=== PATIENT | male | born 2000 | race Caucasian/White ===

== ENCOUNTER 2023-12-04 03:22 | Emergency (ER) | payer SELFPAY ==
[~2023-12-04] VITALS: Ht 190.5 cm; Wt 99.8 kg
[2023-12-04 03:27] VITALS: BP 106/55; PULSE 88; RESP 20; TEMP 97.2; O2SAT 100
[2023-12-04] MEDS ORDERED: HALOPERIDOL IM 5 MG/ML VIAL IM ONE (03:40)
[2023-12-04] MEDS ORDERED: NACL 0.9% 1,000 ML IV ONE (03:40)
[2023-12-04 05:34] LABS: CALCIUM 8.4 mg/dL (8.5-10.1); CARBON DIOXIDE 24.8 mmol/L (21-32); CREATININE 0.8 mg/dL (0.6-1.3); POTASSIUM 5.8 mmol/L (3.5-5.1)
[2023-12-04 06:00] VITALS: O2SAT 98
[2023-12-04 07:56] VITALS: O2SAT 98
[2023-12-04 08:00] VITALS: BP 107/46; PULSE 67; RESP 16; TEMP 97.2; O2SAT 98
[2023-12-05] MEDS ORDERED: LORA-476 PO (11:29)
== END 2023-12-04 09:33 | disposition home or self-care (01) ==
LOC: MED 03:22
DX: F10.129 Alcohol abuse with intoxication, unspecified (principal); R45.1 Restlessness and agitation; Z79.899 Other long term (current) drug therapy; Y90.9 Presence of alcohol in blood, level not specified
CPT/HCPCS: 36415; 80048; 96360; 96372; 99283; G0482; J1630; J7030

== ENCOUNTER 2023-12-05 10:04 | Emergency (ER) | payer OTHER ==
[~2023-12-05] VITALS: Ht 195.6 cm; Wt 95.3 kg
[2023-12-05 10:16] VITALS: BP 136/86; PULSE 93; RESP 19; TEMP 97.6; O2SAT 96
[2023-12-05] MEDS ORDERED: LORazepam 1 MG TAB PO ONE (11:10)
[2023-12-05] MEDS ORDERED: LORA-476 PO (11:29)
[2023-12-05 12:17] VITALS: BP 126/69; PULSE 96; RESP 18; TEMP 97.6; O2SAT 97
== END 2023-12-05 12:18 | disposition home or self-care (01) ==
LOC: MED 10:04
DX: F41.9 Anxiety disorder, unspecified (principal); Z79.899 Other long term (current) drug therapy; Z88.0 Allergy status to penicillin
CPT/HCPCS: 99283